=== PATIENT | female | born 1970 | race Caucasian/White ===

== ENCOUNTER 2019-02-21 20:22 | Emergency (ER) | payer OTHER, SELFPAY ==
[2019-02-21 20:28] VITALS: BP 108/74; PULSE 76; RESP 20; TEMP 37; O2SAT 99
[2019-02-21] MEDS: KETOROLAC 60 MG/2 ML VIAL IM (21:16)
--- NOTE | 2019-02-21 21:17 | ED_ITS ---
HPI - Back Pain/Injury <Karina Castrejon PA-C - Last Filed: 02/21/19 22:03> General Chief Complaint: Back Pain/Injury Stated Complaint: BACK PAIN Time Seen by Provider: 02/21/19 21:03 Source: patient Mode of arrival: ambulatory Limitations: no limitations History of Present Illness HPI Narrative: This 48-year-old female complains of onset of back pain across her low back late this morning while she was gardening. She states that she was on her knees pulling weeds, went to stand up and felt like her back ?locked? she states that it took quite a while for her to be able to straighten up, then she had pain with walking. After she got home, she felt like she had a contraction like pain across her low back. She did take an Aleve earlier and states that she does not think that helped too much, but pain is somewhat better now, not having the spasm type pain currently. She states that she is able to walk, no weakness or paresthesia in her legs, just sore with walking. She states that actually feels good to stretch out her back. She denies any groin paresthesia, difficulty with urination or urinary symptoms, new rash or fever or other complaints on systems review. Denies any other injury. She does have a history of sciatica more bothersome on the right but states this is not typical for that. She is postmenopausal Related Data Home Medications Medication Instructions Recorded Confirmed [DAYQUIL] #0 05/27/13 albuterol sulfate [Ventolin HFA] 2 puff INH PRN #0 05/27/13 cetirizine 10 mg PO QDAY #0 05/27/13 ipratropium-albuterol [Combivent 1 puff INH QID #1 inh 05/27/13 Respimat] levalbuterol tartrate [Xopenex HFA] 2 puff INH Q2HP #0 05/27/13 Previous Rx's Medication Instructions Recorded cyclobenzaprine 10 mg PO Q8H PRN #12 tab 02/21/19 meloxicam 15 mg PO DAILY #15 tab 02/21/19 Allergies Allergy/AdvReac Type Severity Reaction Status Date / Time NUTS Allergy Unknown Uncoded 02/16/18 12:17 Review of Systems <Karina Castrejon PA-C - Last Filed: 02/21/19 22:03> Review of Systems ROS Unobtainable: All systems reviewed & are unremarkable except as noted in HPI and below PFSH <Karina Castrejon PA-C - Last Filed: 02/21/19 22:03> Medical History (Updated 02/21/19 @ 21:59 by Karina Castrejon PA-C) Allergy-induced asthma (Chronic) Sciatica (Chronic) Surgical History (Updated 02/21/19 @ 21:22 by Karina Castrejon PA-C) History of (Resolved) Social History Smoking Status: Current every day smoker Social History Smoking Status: Current every day smoker Exam <Karina Castrejon PA-C - Last Filed: 02/21/19 22:03> Narrative Exam Narrative: GENERAL APPEARANCE: Patient sitting comfortably, in no distress. PULMONARY: Lungs clear to auscultation bilaterally CV: Regular rhythm regular without murmur, normal S1 and S2, no S3 or S4 MUSCULOSKELETAL: No point tenderness over the lumbar spine. Full AROM of trunk. Moderate tenderness in the right lumbar musculature and SI area, mild on the left. Lower extremity strength 5/5 bilateral hip flexors, knee extensors, foot plantar flexion. Negative modified straight leg raise NEUROLOGIC: Bilateral patellar and Achilles DTRs 2+ DERM: No exanthem Initial Vital Signs Initial Vital Signs: Vital Signs Temperature 98.6 F 02/21/19 20:28 Pulse Rate 76 02/21/19 20:28 Respiratory Rate 20 02/21/19 20:28 Blood Pressure 108/74 02/21/19 20:28 Pulse Oximetry 99 02/21/19 20:28 <Anil Donato MD - Last Filed: 02/21/19 23:26> Initial Vital Signs Initial Vital Signs: Vital Signs Temperature 98.6 F 02/21/19 20:28 Pulse Rate 76 02/21/19 20:28 Respiratory Rate 20 02/21/19 20:28 Blood Pressure 108/74 02/21/19 20:28 Pulse Oximetry 99 02/21/19 20:28 Course <Karina Castrejon PA-C - Last Filed: 02/21/19 22:03> Additional Information: The patient is feeling significantly improved with ice and medications. She is off work the next couple of days will follow up with her PCP prior to return to full work duty which involves heavy lifting. Agreed to return if any acutely worsening symptoms. Orders Ordered: Discontinued Medications Cyclobenzaprine HCl (Flexeril) 10 mg PO NOW ONE Stop: 02/21/19 21:12 Last Admin: 02/21/19 21:33 Dose: 10 mg Cyclobenzaprine HCl (Flexeril 10 Mg Prepack) 1 bottle MISC SEEINSTR ONE Stop: 02/21/19 21:53 Last Admin: 02/21/19 21:59 Dose: 1 bottle Ketorolac Tromethamine (Toradol) 60 mg IM NOW ONE Stop: 02/21/19 21:12 Last Admin: 02/21/19 21:16 Dose: 60 mg Vital Signs - 8 hr 02/21/19 20:28 02/21/19 22:07 Temperature 98.6 F Pulse Rate 76 66 Respiratory Rate 20 18 Blood Pressure 108/74 130/60 Pulse Oximetry 99 98 <Anil Donato MD - Last Filed: 02/21/19 23:26> Orders Ordered: Discontinued Medications Cyclobenzaprine HCl (Flexeril) 10 mg PO NOW ONE Stop: 02/21/19 21:12 Last Admin: 02/21/19 21:33 Dose: 10 mg Cyclobenzaprine HCl (Flexeril 10 Mg Prepack) 1 bottle MISC SEEINSTR ONE Stop: 02/21/19 21:53 Last Admin: 02/21/19 21:59 Dose: 1 bottle Ketorolac Tromethamine (Toradol) 60 mg IM NOW ONE Stop: 02/21/19 21:12 Last Admin: 02/21/19 21:16 Dose: 60 mg Vital Signs - 8 hr 02/21/19 20:28 02/21/19 22:07 Temperature 98.6 F Pulse Rate 76 66 Respiratory Rate 20 18 Blood Pressure 108/74 130/60 Pulse Oximetry 99 98 Discharge Plan Departure Patient Disposition: Home Clinical Impression: Strain of lumbar region Qualifiers: Encounter type: initial encounter Qualified Code(s): S39.012A - Strain of muscle, fascia and tendon of lower back, initial encounter Discharge Date/Time: 02/21/19 22:07 Interventions: ED Discharge Assessment Last Done: 02/21/19 22:07 Instructions: DI for Back Spasm, DI for Back Strain or Sprain Activity Restrictions/Additional Instructions: Please return as we talked about if you have acutely worsening symptoms, or new symptoms such as weakness in your extremities, numbness in her groin or inability to urinate. Otherwise, please rest at home tomorrow as you have planned, gentle walking is okay on flat surfaces. Start the once daily anti- inflammatory meloxicam that I sent in for you in the morning. You can continue to take the muscle relaxant cyclobenzaprine every 8 hours as needed (remember that it can make you sleepy and not to drive). I sent a prescription for that to the pharmacy as well. You can use your topical lidocaine patches as needed as well as heat and ice. If you need to, you can take an extra tablet of the muscle relaxant tonight (the maximum dose is 2 tablets every 8 hours). Please avoid heavy lifting. Please follow-up with your primary care clinic in the next couple of days prior to returning to full duty at work, avoid heavy lifting. Prescriptions: New cyclobenzaprine 10 mg tablet 10 mg PO Q8H PRN (Reason: muscle spasm) Qty: 12 RF: 0 meloxicam 15 mg tablet 15 mg PO DAILY Qty: 15 RF: 0 No Action albuterol sulfate [Ventolin HFA] 90 MCG/PUFF HFA aerosol inhaler 2 puff INH PRN Qty: 0 RF: 0 levalbuterol tartrate [Xopenex HFA] 45 MCG/INH HFA aerosol inhaler 2 puff INH Q2HP Qty: 0 RF: 0 cetirizine 10 MG tablet 10 mg PO QDAY Qty: 0 RF: 0 ipratropium-albuterol [Combivent Respimat] 4 GM mist 1 puff INH QID Qty: 1 RF: 0 [DAYQUIL] Qty: 0 RF: 0 Referrals: Tomas Phillips MD [Primary Care Provider] - Stand Alone Forms: Work Release Note <Anil Donato MD - Last Filed: 02/21/19 23:26> Cosign ED Attending Isabelature Attestation: I was present in the ER at the time this patient's care. I was available for consultation if needed. I agree with the assessment and treatment plan.
[2019-02-21] MEDS: CYCLOBENZAPRINE 10 MG TABLET PO (21:33)
[2019-02-21] MEDS: CYCLOBENZAPRINE 10 MG PREPACK 1 BOTTLE MISC (21:59)
[2019-02-21 22:07] VITALS: BP 130/60; PULSE 66; RESP 18; O2SAT 98
== END 2019-02-21 22:07 | disposition home or self-care (01) ==
PROVIDERS: Emergency Provider Internal Medicine; PCP Family Medicine
DX: S39.012A Strain of muscle, fascia and tendon of lower back, initial encounter (principal); Y93.H2 Activity, gardening and landscaping
CPT/HCPCS: 96372; 99282; 99283; J1885

== ENCOUNTER 2022-01-26 11:20 | Emergency (ER) | payer OTHER, SELFPAY ==
[2022-01-26 11:26] VITALS: BP 122/68; PULSE 85; RESP 15; TEMP 36.9; O2SAT 98; BMI 28.8
--- NOTE | 2022-01-26 13:54 | ED.SKABFB ---
HPI - Skin/Abscess/Foreign Bdy <Hubert Corrales PA-C - Last Filed: 01/26/22 19:13> General Chief complaint: Skin/Abscess/Foreign Body Stated complaint: Right side of face swollen Time Seen by Provider: 01/26/22 12:54 Source: patient Mode of arrival: Ambulatory Limitations: no limitations History of Present Illness HPI narrative: Patient is a 51-year-old female who presents to the emergency department today for an evaluation right-sided facial swelling. Patient explains that she was eating breakfast this morning and noticed shortly after that the right side of her face has become swollen. She became concerned as she had cut the top of her left hand yesterday with a box loader and was concerned that she may have a spreading infection. Of note, patient states that she has kept the laceration on her left hand covered with a bandage and a homemade splint to keep the left hand from moving. She explains that since arriving to the emergency department the right-sided facial swelling has since subsided. She denies fever, chills, chest pain, cough, shortness of breath, nausea, vomiting, diarrhea, constipation, abdominal pain, dysuria, hematuria, numbness and tingling in the upper extremities, throat swelling, rash, or any other concerning symptoms. No further concerns were voiced at this time. Related Data Home Medications Medication Instructions Recorded Confirmed [DAYQUIL] #0 05/27/13 albuterol sulfate 90 mcg/actuation 2 puff INH PRN #0 05/27/13 aerosol inhaler (Ventolin HFA) cetirizine 10 mg tablet 10 mg PO QDAY #0 05/27/13 ipratropium 20 mcg-albuterol 100 1 puff INH QID #1 inh 05/27/13 mcg/actuation mist for inhalation (Combivent Respimat) levalbuterol tartrate 45 2 puff INH Q2HP #0 05/27/13 mcg/actuation aerosol inhaler (Xopenex HFA) Previous Rx's Medication Instructions Recorded cyclobenzaprine 10 mg tablet 10 mg PO Q8H PRN #12 tab 02/21/19 meloxicam 15 mg tablet 15 mg PO DAILY #15 tab 02/21/19 amoxicillin 500 mg capsule 500 mg PO BID #14 cap 01/26/22 Allergies Allergy/AdvReac Type Severity Reaction Status Date / Time No Known Drug Allergies Allergy Verified 01/26/22 11:26 Review of Systems <Hubert Corrales PA-C - Last Filed: 01/26/22 19:13> Constitutional Constitutional: Denies chills, Denies fatigue, Denies fever(s), Denies frequent falls, Denies lethargy and Denies weakness Eyes Eyes: Denies loss of vision ENT Ears, Nose, Mouth, and Throat: Denies dizziness and Denies neck pain Cardiovascular Cardiovascular: Denies chest pain, Denies irregular heart rhythm, Denies lightheadedness, Denies palpitations, Denies dyspnea, Denies dyspnea on exertion and Denies orthopnea Respiratory Respiratory: Denies cough, Denies dyspnea, Denies dyspnea on exertion and Denies wheezing Gastrointestinal Gastrointestinal: Denies abdominal pain, Denies change in bowel habits, Denies diarrhea, Denies nausea and Denies vomiting Genitourinary Genitourinary: Denies hematuria, Denies flank pain, Denies urinary incontinence and Denies urinary urgency Musculoskeletal Musculoskeletal: Denies back pain, Denies muscle weakness, Denies neck pain, Denies numbness and Denies tingling Integumentary/Breasts Skin/Breast: Denies pruritus, Denies erythema, Denies rash, Reports skin swelling (Right-sided facial swelling) and Reports wounds (Left hand laceration) Neurologic Neurologic: Denies behavioral changes, Denies confusion, Denies dizziness, Denies frequent falls, Denies loss of vision, Denies numbness, Denies tingling and Denies weakness Psychiatric Psychiatric: Denies behavioral changes and Denies confusion Endocrine Endocrine: Denies fatigue and Denies palpitations Allergic/Immunologic Allergic/Immunologic: Denies wheezing Patient History <Hubert Corrales PA-C - Last Filed: 01/26/22 19:13> Medical History Allergy-induced asthma Sciatica Surgical History History of Social History Smoking Status: Current every day smoker Smoking Status: Current every day smoker alcohol intake frequency: 0-2 drinks per day Substance Use Type: does not use Exam <Hubert Corrales PA-C - Last Filed: 01/26/22 19:13> Narrative Exam Narrative: GENERAL: 51 year old patient appears stated age. Well-developed patient, in no acute distress. HEAD: Atraumatic. Normocephalic. EYES: Pupils equal round and reactive. Extraocular motions intact. No scleral icterus. No injection or drainage. ENT: Nose without bleeding, purulent drainage. Throat without erythema, tonsillar hypertrophy or exudate. Airway patent. No significant pharyngeal erythema or swelling. Tongue is not swollen on exam. NECK: Trachea midline. Non tender CARDIOVASCULAR: Regular rate and rhythm without murmurs, gallops, or rubs. RESPIRATORY: Clear to auscultation. Breath sounds equal bilaterally. No wheezes, rales, or rhonchi. Respirations are nonlabored GASTROINTESTINAL: Abdomen soft, non-tender, nondistended. EXTREMITIES: No edema or joint tenderness. BACK: Nontender without deformity or crepitance. No flank tenderness. NEURO: AOx3. SKIN: No rash or erythema of visible areas. Approximately 2 cm linear laceration appreciated on the dorsal aspect of the left hand proximal to the 2nd MCP joint. No significant surrounding erythema or swelling no active discharge appreciated. Deep tissue structures do not appear involved on gross examination. Initial Vital Signs Initial Vital Signs: Vital Signs Temperature 98.4 F 01/26/22 11:26 Pulse Rate 85 01/26/22 11:26 Respiratory Rate 15 01/26/22 11:26 Blood Pressure 122/68 01/26/22 11:26 Pulse Oximetry 98 01/26/22 11:26 <Naima Solitario DO - Last Filed: 01/29/22 08:39> Initial Vital Signs Initial Vital Signs: Vital Signs Temperature 98.4 F 01/26/22 11:26 Pulse Rate 85 01/26/22 11:26 Respiratory Rate 15 01/26/22 11:26 Blood Pressure 122/68 01/26/22 11:26 Pulse Oximetry 98 01/26/22 11:26 Course <Hubert Corrales PA-C - Last Filed: 01/26/22 19:13> Vital Signs Vital signs: Vital Signs - 8 hr 01/26/22 11:26 01/26/22 14:30 Temperature 98.4 F 98.3 F Pulse Rate 85 86 Respiratory Rate 15 16 Blood Pressure 122/68 123/69 Pulse Oximetry 98 99 <Naima HarriselyDO - Last Filed: 01/29/22 08:39> Vital Signs Vital signs: Vital Signs - 8 hr 01/26/22 11:26 01/26/22 14:30 Temperature 98.4 F 98.3 F Pulse Rate 85 86 Respiratory Rate 15 16 Blood Pressure 122/68 123/69 Pulse Oximetry 98 99 MDM - Skin/Abscess/Foreign Bdy <Hubert Corrales PA-C - Last Filed: 01/26/22 19:13> MDM Narrative Medical decision making narrative: Differential diagnosis to consider but not limited to dental abscess versus peritonsillar abscess versus superficial skin laceration versus deep tissue laceration verses abscess versus cellulitis. Discussed with patient the fact that the laceration to her left hand is over 24 hours hold that it will require secondary closure and sutures would not be appropriate at this time. I encouraged the patient to keep the laceration covered and protected while working in to return to the emergency department if she notices significant swelling, redness, discharge, or any other concerning signs or symptoms regarding laceration. I discussed plan to provide the patient with an antibiotic for a dental infection as the right upper molar on exam does appear to have dental caries without any sign of appreciable abscess formation. Patient expresses understanding and agrees to plan. I urged the patient to follow up with her dentist as soon as possible. He states that this time she is comfortable being discharged home and is stable for discharge. Strict return precautions were discussed with the patient prior to discharge. Discharge Plan Departure Patient Disposition: Home Clinical Impression: Dental infection, Laceration of hand, left, Dental caries Instructions: DI for Wound Infection Activity Restrictions/Additional Instructions: *You have been diagnosed with dental infection, left hand laceration, dental caries *What to do: *Please continue to take your regular medications as directed. [X] New medication prescriptions sent to your pharmacy: [facility] - amoxicillin [ ] New medication written as a paper prescription [ ] No new medications given You were evaluated in the emergency department today for right-sided facial swelling and a left hand laceration. Considering that the laceration to the left hand is over 24 hours hold it would be inappropriate to close the laceration with sutures in the emergency department today. I recommend keeping the laceration site protected and covered and you may apply a small film of antibiotic ointment over the laceration to keep it protected. I have prescribed you a course of amoxicillin for a dental infection as your left upper molar does appear to have a possible infection. I urged to follow-up with your dentist as soon as possible for further evaluation. Additionally, I recommend following up with the primary care provider within the next 2-3 days for further evaluation. Do not hesitate to return to the emergency department if you experience fever, worsening swelling, pain, discharge from the laceration site, swelling of the tissue surrounding the laceration, or any other concerning symptoms. *Please follow up with your primary care provider in 2-3 days, call for an appointment. Let them know you were seen in the Emergency Department and that we ask that you be seen in follow up. We will electronically transmit a record of today's note if your PCP is in our system *If you do not have a primary care provider please contact the [facility] Resource line at [phone]. They will ask some questions about your medical history and help get you set up with a doctor in the community. *Return to Emergency Department if you should have any new, worsening or concerning symptoms, such as fever greater than 101 F, shaking chills, worsening pain, persistent vomiting or other bothersome symptoms. Prescriptions: New amoxicillin 500 mg capsule 500 mg PO BID Qty: 14 0RF No Action albuterol sulfate [Ventolin HFA] 90 MCG/PUFF HFA aerosol inhaler 2 puff INH PRN Qty: 0 0RF levalbuterol tartrate [Xopenex HFA] 45 MCG/INH HFA aerosol inhaler 2 puff INH Q2HP Qty: 0 0RF cetirizine 10 MG tablet 10 mg PO QDAY Qty: 0 0RF ipratropium-albuterol [Combivent Respimat] 4 GM mist 1 puff INH QID Qty: 1 0RF [DAYQUIL] Qty: 0 0RF cyclobenzaprine 10 mg tablet 10 mg PO Q8H PRN (Reason: muscle spasm) Qty: 12 0RF Rx Instructions: do not drive meloxicam 15 mg tablet 15 mg PO DAILY Qty: 15 0RF Rx Instructions: not with other NSAIDs Referrals: Tomas Phillips MD [Primary Care Provider] - <Naima Solitario DO - Last Filed: 01/29/22 08:39> Cosign ED Attending Cospipeature Attestation: I was immediately available in the department for consultation. Documentation has been reviewed.
[2022-01-26 14:30] VITALS: BP 123/69; PULSE 86; RESP 16; TEMP 36.8; O2SAT 99
== END 2022-01-26 14:31 | disposition home or self-care (01) ==
PROVIDERS: Emergency Provider Physician Assistant; PCP Family Medicine
DX: K04.7 Periapical abscess without sinus (principal); S61.412A Laceration without foreign body of left hand, initial encounter; W26.8XXA Contact with other sharp object(s), not elsewhere classified, initial encounter
CPT/HCPCS: 99281